=== PATIENT | female | born 1985 | race Hispanic/Latino ===

== ENCOUNTER → 2018-02-26 | Outpatient (CLI) | payer BC | END | disposition home or self-care (01) | LOC: OIH 11:17 | PROVIDERS: ATTEND Internal Medicine | DX: M47.26 Other spondylosis with radiculopathy, lumbar region (principal) | CPT/HCPCS: 72100 ==

== ENCOUNTER → 2020-12-06 | Outpatient (CLI) | payer BC | END | disposition home or self-care (01) | LOC: OIH 13:25 | PROVIDERS: ATTEND General Practice | DX: M51.36 Other intervertebral disc degeneration, lumbar region (principal) | CPT/HCPCS: 72100 ==